=== PATIENT | female | born 1970 | race Caucasian/White ===

== ENCOUNTER → 2020-10-19 | Outpatient (CLI) | payer BC ==
[2020-10-19 08:10] LABS: EOS # 0.1 (0.04-0.40); EOS % 1.6 % (1.0-5.0); HEMATOCRIT 41.3 % (37.0-47.0); HEMOGLOBIN 13.5 g/dL (12.5-16.0); LYMPH# 2.1 (1.50-4.00); MEAN CELL VOLUME 92 fl (78-100); MEAN CORPUSCULAR HEMOGLOBIN 30 pg (27-31); MEAN CORPUSCULAR HGB CONC 33 g/dL (33-37); MEAN PLATELET VOLUME 10.9 fl (7.4-10.4); MONO # 0.5 (0.20-0.80); NEU # 4.5 (1.40-6.50); PLATELET COUNT 210 K/mm3 (130-400); RED BLOOD COUNT 4.49 M/mm3 (4.10-5.30); RED CELL DISTRIBUTION WIDTH 13.4 % (11.5-14.5); WHITE BLOOD COUNT 7.3 K/mm3 (4.8-10.8)
[2020-10-19 08:14] LABS: POTASSIUM 4.5 mmol/L (3.5-5.1)
[2020-10-19 08:15] LABS: CALCIUM 8.8 mg/dL (8.3-10.5)
[2020-10-19 08:16] LABS: TOTAL PROTEIN 6.7 g/dL (6.4-8.3)
[2020-10-19 08:18] LABS: TOTAL BILIRUBIN 0.5 mg/dL (0.2-1.2)
[2020-10-20 21:28] LABS: CA-125 14.7 U/mL (0.0-35.0)
== END ==
LOC: LAB 07:44
PROVIDERS: Internal Medicine
DX: C56.9 Malignant neoplasm of unspecified ovary (principal); G62.9 Polyneuropathy, unspecified; K90.9 Intestinal malabsorption, unspecified; R73.09 Other abnormal glucose

== ENCOUNTER → 2021-02-22 | Outpatient (CLI) | payer BC ==
[2021-02-22 16:51] LABS: BASO # 0.05 (0.02-0.10); EOS # 0.12 (0.04-0.40); EOS % 1.3 % (1.0-5.0); HEMATOCRIT 39.2 % (37.0-47.0); HEMOGLOBIN 13.2 g/dL (12.5-16.0); LYMPH# 3.03 (1.50-4.00); MEAN CELL VOLUME 91 fl (78-100); MEAN CORPUSCULAR HEMOGLOBIN 31 pg (27-31); MEAN CORPUSCULAR HGB CONC 34 g/dL (33-37); MEAN PLATELET VOLUME 10.7 fl (7.4-10.4); MONO # 0.69 (0.20-0.80); NEU # 5.66 (1.40-6.50); PLATELET COUNT 224 K/mm3 (130-400); RED BLOOD COUNT 4.32 M/mm3 (4.10-5.30); RED CELL DISTRIBUTION WIDTH 12.9 % (11.5-14.5); WHITE BLOOD COUNT 9.6 K/mm3 (4.8-10.8)
[2021-02-22 17:02] LABS: ALBUMIN 4.1 g/dL (3.5-5.0); POTASSIUM 4.5 mmol/L (3.5-5.1)
[2021-02-22 17:04] LABS: CALCIUM 8.9 mg/dL (8.3-10.5)
[2021-02-22 17:05] LABS: TOTAL PROTEIN 6.8 g/dL (6.4-8.3)
[2021-02-22 17:07] LABS: TOTAL BILIRUBIN 0.2 mg/dL (0.2-1.2)
[2021-02-22 17:53] LABS: ERYTHROCYTE SEDIMENTATION RATE 12 mm/hr (0-30)
== END ==
LOC: LAB 16:41
PROVIDERS: Internal Medicine
DX: G62.9 Polyneuropathy, unspecified (principal); K90.9 Intestinal malabsorption, unspecified; R73.09 Other abnormal glucose

== ENCOUNTER → 2021-03-11 | Outpatient (CLI) | payer BC | LOC: RAD 09:00 | DX: R59.0 Localized enlarged lymph nodes (principal) | CPT/HCPCS: Q9967 ==

== ENCOUNTER → 2021-06-10 | Outpatient (CLI) | payer SELFPAY ==
[2021-06-10 16:20] LABS: CLUE CELLS NOT OBSERVED (Not Observd)
== END ==
LOC: LAB 15:47
PROVIDERS: Nurse Practitioner
DX: R30.0 Dysuria (principal)
CPT/HCPCS: Q0111

== ENCOUNTER → 2021-07-04 | Outpatient (CLI) | payer BC | LOC: LAB 10:15 | DX: R50.9 Fever, unspecified (principal); Z20.822 Contact with and (suspected) exposure to COVID-19 ==

== ENCOUNTER 2021-12-22 20:29 | Emergency (ER) | payer OTHER, BC ==
[~2021-12-22] VITALS: Ht 165.1 cm; Wt 79.5 kg
[2021-12-22] MEDS ORDERED: ZYRTEC10 M3 PO (20:34)
[2021-12-22] MEDS ORDERED: CITALOPRAM40 MG PO (20:34)
[2021-12-22] MEDS ORDERED: FLONASE ALLERG9.9 ML NS (20:34)
[2021-12-22] MEDS ORDERED: SINGULAIR PO (20:34)
[2021-12-22] MEDS ORDERED: CEFDINIR300 MG PO (20:35)
[2021-12-22 21:57] LABS: URINE WBC 0 /hpf (0-3)
[2021-12-22 22:03] LABS: URINE APPEARANCE CLEAR; URINE BILIRUBIN NEGATIVE (NEGATIVE); URINE BLOOD NEGATIVE (NEGATIVE); URINE COLOR YELLOW; URINE GLUCOSE NEGATIVE (NEGATIVE); URINE KETONE NEGATIVE (NEGATIVE); URINE LEUKOCYTE ESTERASE NEGATIVE (NEGATIVE); URINE NITRATE NEGATIVE (NEGATIVE); URINE PROTEIN(semi-quant) NEGATIVE (NEGATIVE); URINE UROBILINOGEN NORMAL (NORMAL)
[2021-12-22] MEDS ORDERED: CYCLOBENZAPRINE10 M1 PO (22:21)
[2021-12-22] MEDS ORDERED: NORCO 325 MG-51 TA1 PO (22:21)
[2021-12-22] MEDS ORDERED: ZOFRAN ODT4 MG PO (22:27)
[2021-12-22 22:55] VITALS: BP 133/95
== END 2021-12-22 22:55 | disposition home or self-care (01) ==
LOC: ED 20:29
PROVIDERS: Family Medicine
DX: S50.02XA Contusion of left elbow, initial encounter (principal); M25.512 Pain in left shoulder; R07.89 Other chest pain; Z91.040 Latex allergy status; V49.40XA Driver injured in collision with unspecified motor vehicles in traffic accident, initial encounter
CPT/HCPCS: J2270; J2360